=== PATIENT | male | born 1985 | race Caucasian/White ===

== ENCOUNTER → 2018-03-12 | Outpatient (CLI) | payer OTHER ==
--- NOTE | 2018-03-13 08:45 | CT ---
EXAMINATION TYPE: CT iac wo con DATE OF EXAM: 03/12/2018 COMPARISON: NONE HISTORY: Otorrhea to left ear CT DLP: 199mGycm Automated exposure control for dose reduction was used. FINDINGS: There is mucosal thickening within the left maxillary sinus. Right septal spurring is noted . Sphenoid sinuses are clear. Ethmoid air cells are clear. The portion of the frontal sinuses within the [id number] are clear. There are are peripheral scattered fluid-filled right mastoid air cells. More central and inferior ma stoid air cell fluid is on the left. Septal destruction is not identified. Internal auditory canals appear normal and symmetrical. Semicircular canals are unremarkable. There i s a high riding right jugular bulb. Middle ears are clear. Incus and malleus on the right appear norm al. Incus and malleus on the left have small amount of fluid adjacent. Some minimal fluid is within t he middle ear on the left. External auditory canals are clear. IMPRESSION: 1. Correlate for bilateral mastoiditis. 2. Left otitis media may be present. Clinical correlation is recommended.
== END ==
LOC: RADCTMAIN 16:39
PROVIDERS: ATTEND Otolaryngology
DX: H92.12 Otorrhea, left ear (principal)
CPT/HCPCS: 70480

== ENCOUNTER 2018-10-30 03:23 | Emergency (ER) | payer OTHER ==
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
[2018-10-30 03:37] VITALS: RESP 18
[2018-10-30 03:57] LABS: Basophils % (A) 0 %; Eosinophils # (A) 0.1 k/uL (0-0.7); Eosinophils % (A) 1 %; HCT 50.7 % (39.0-53.0); HGB 17.1 gm/dL (13.0-17.5); Lymphocytes # (A) 2.7 k/uL (1.0-4.8); Lymphocytes % (A) 19 %; MCHC 33.8 g/dL (31.0-37.0); MCV 97.7 fL (80.0-100.0); Mean Platelet Volume 6.9; Monocytes # (A) 0.7 k/uL (0-1.0); Monocytes % (A) 5 %; Neutrophils # (A) 10.1 k/uL (1.3-7.7); Neutrophils % (A) 73 %; Platelet Count 475 k/uL (150-450); RBC 5.19 m/uL (4.30-5.90); RDW 12.5 % (11.5-15.5); WBC 13.9 k/uL (3.8-10.6)
[2018-10-30] MEDS ORDERED: LORazepam 2 MG/ML INJ IV STA (04:03)
--- NOTE | 2018-10-30 04:06 | XR ---
EXAMINATION TYPE: XR chest 1V portable DATE OF EXAM: 10/30/2018 COMPARISON: NONE HISTORY: Chest pain TECHNIQUE: Single frontal view of the chest is obtained. FINDINGS: Heart and mediastinum are normal. Lungs are clear. Diaphragm is normal. There is no pleura l effusion or pneumothorax. Bony thorax appears normal. IMPRESSION: Normal chest
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
[2018-10-30 04:07] LABS: ALT 38 U/L (21-72); AST 29 U/L (17-59); Albumin 4.6 g/dL (3.5-5.0); Alkaline Phosphatase 97 U/L (38-126); Anion Gap 18 mmol/L; Blood Urea Nitrogen 6 mg/dL (9-20); Calcium 9.9 mg/dL (8.4-10.2); Carbon Dioxide 20 mmol/L (22-30); Chloride 110 mmol/L (98-107); Glucose 119 mg/dL (74-99); Potassium 3.4 mmol/L (3.5-5.1); Sodium 148 mmol/L (137-145); Total Bilirubin 0.3 mg/dL (0.2-1.3); Total Protein 7.7 g/dL (6.3-8.2)
[2018-10-30 04:26] LABS: Creatine Kinase 89 U/L (55-170)
[2018-10-30 04:29] LABS: INR 0.9 (<1.2); Partial Thromboplastin Time 23.8 sec (22.0-30.0); Prothrombin Time 9.7 sec (9.0-12.0)
[2018-10-30 04:39] LABS: Creatine Kinase MB <0.2 ng/mL (0.0-2.4); Troponin I <0.012 ng/mL (0.000-0.034)
[2018-10-30 04:47] LABS: Alcohol 357 mg/dL
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
[2018-10-30] MEDS ORDERED: SODIUM CHLORIDE 0.9% 1,000 ML IV ONE (06:20)
[2018-10-30 07:43] LABS: Appearance,Urine Clear (Clear); Bilirubin,Urine Negative (Negative); Blood,Urine Negative (Negative); Color,Urine Light Yellow; Glucose,Urine (UA) Negative (Negative); Ketones,Urine Negative (Negative); Leukocyte Esterase,Urine Negative (Negative); Nitrite,Urine Negative (Negative); PH, Urine 5.5 (5.0-8.0); Protein,Urine Negative (Negative); Urobilinogen,Urine <2.0 mg/dL (<2.0)
[2018-10-30 07:54] LABS: Amphetamine Screen,Urine Not Detected (NotDetected); Barbiturate Screen,Urine Not Detected (NotDetected); Benzodiazepines Screen,Urine Not Detected (NotDetected); Cocaine Screen,Urine Not Detected (NotDetected); Methadone Screen, Urine Not Detected (NotDetected); Opiate Screen,Urine Not Detected (NotDetected); Oxycodone Screen, Urine Not Detected (NotDetected); Phencyclidine Screen,Urine Not Detected (NotDetected); Tricyclic Antidepressant,Urine Not Detected (NotDetected); Urn Cannabinoid Scrn Detected (NotDetected)
[2018-10-30 08:10] VITALS: BP 117/76; PULSE 74; TEMP 97.9
== END 2018-10-30 08:09 | disposition home or self-care (01) ==
LOC: EC 03:23
DX: S10.93XA Contusion of unspecified part of neck, initial encounter (principal); S00.83XA Contusion of other part of head, initial encounter; R04.0 Epistaxis; F10.129 Alcohol abuse with intoxication, unspecified; F17.200 Nicotine dependence, unspecified, uncomplicated; Z79.899 Other long term (current) drug therapy; V89.2XXA Person injured in unspecified motor-vehicle accident, traffic, initial encounter; Y92.410 Unspecified street and highway as the place of occurrence of the external cause
CPT/HCPCS: 36415; 93005; 80053; 82550; 82553; 84484; 85025; 85610; 85730; 81003; 80306; 80320; 72170; 71045; 72125; 70450; 70498; 99284; 96374; 96361; J2060; Q9967

== ENCOUNTER 2018-11-17 14:24 | Emergency (ER) | payer OTHER ==
[2018-11-17 14:36] VITALS: TEMP 97.9
[2018-11-17] MEDS ORDERED: ONDANSETRON 4 MG/2 ML VIAL IVP STA (14:50)
[2018-11-17] MEDS ORDERED: SODIUM CHLORIDE 0.9% 2,000 ML IV STA (14:50)
[2018-11-17] MEDS ORDERED: KETOROLAC 30 MG/ML 1 ML VIAL IVP STA (15:34)
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
[2018-11-17 15:37] LABS: Basophils # (A) 0.1 k/uL (0-0.2); Basophils % (A) 1 %; Eosinophils # (A) 0.1 k/uL (0-0.7); Eosinophils % (A) 1 %; HGB 17.5 gm/dL (13.0-17.5); Lymphocytes # (A) 1.7 k/uL (1.0-4.8); Lymphocytes % (A) 16 %; MCH 33.2 pg (25.0-35.0); MCHC 34.4 g/dL (31.0-37.0); MCV 96.7 fL (80.0-100.0); Mean Platelet Volume 6.8; Monocytes # (A) 0.6 k/uL (0-1.0); Monocytes % (A) 6 %; Neutrophils # (A) 8.3 k/uL (1.3-7.7); Neutrophils % (A) 76 %; Platelet Count 516 k/uL (150-450); RBC 5.27 m/uL (4.30-5.90); RDW 12.5 % (11.5-15.5); WBC 10.9 k/uL (3.8-10.6)
[2018-11-17 15:53] LABS: ALT 43 U/L (21-72); AST 20 U/L (17-59); Albumin 4.8 g/dL (3.5-5.0); Alkaline Phosphatase 128 U/L (38-126); Amylase 52 U/L (30-110); Anion Gap 11 mmol/L; Blood Urea Nitrogen 15 mg/dL (9-20); Calcium 10.2 mg/dL (8.4-10.2); Carbon Dioxide 24 mmol/L (22-30); Chloride 104 mmol/L (98-107); Glucose 110 mg/dL (74-99); Lipase 100 U/L (23-300); Sodium 139 mmol/L (137-145); Total Bilirubin 0.8 mg/dL (0.2-1.3); Total Protein 8.3 g/dL (6.3-8.2)
--- NOTE | 2018-11-17 16:40 | CT ---
EXAMINATION TYPE: CT abdomen pelvis w con DATE OF EXAM: 11/17/2018 COMPARISON: None HISTORY: lower abdomen pain CT DLP: 543.7 mGycm Automated exposure control for dose reduction was used. TECHNIQUE: Helical acquisition of images was performed from the lung bases through the pelvis. CONTRAST: Performed without Oral Contrast and with IV Contrast, patient injected with 100 mL of Isovue 300. FINDINGS: Lung bases are clear. There is no pleural effusion. Heart size is normal. There is no pericardial eff usion. Liver spleen pancreas gallbladder appear normal. Bile ducts are not dilated. There is no adrenal mass . Kidneys show satisfactory contrast opacification. There is no hydronephrosis. There is no retroperi toneal adenopathy. Bladder distends smoothly. There is no free fluid in the pelvis. There is no ingui nal hernia. There is no mesenteric edema. There is no sign of free air. There is no ascites. Appendix is not defi nitely seen. There is no sign of appendicitis. There is L5 spondylolysis without spondylolisthesis. IMPRESSION: NO SIGN OF ACUTE ABDOMEN AND PELVIS. L5 SPONDYLOLYSIS. APPENDIX NOT SEEN. NO SIGN OF APPENDICITIS.
[2018-11-17 18:37] VITALS: BP 108/73; PULSE 66; RESP 18
== END 2018-11-17 18:30 | disposition home or self-care (01) ==
LOC: EC 14:24
DX: R10.9 Unspecified abdominal pain (principal); R19.7 Diarrhea, unspecified; F11.10 Opioid abuse, uncomplicated; F32.9 Major depressive disorder, single episode, unspecified; F17.200 Nicotine dependence, unspecified, uncomplicated; Z79.899 Other long term (current) drug therapy
CPT/HCPCS: 36415; 80053; 82150; 83605; 83690; 85025; 74177; 99284; 96374; 96375; 96361 ×3; J2405; J1885; Q9967

== ENCOUNTER → 2023-03-20 | Outpatient (CLI) | payer OTHER ==
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
== END | disposition home or self-care (01) ==
LOC: RADMRIMAIN 19:00
PROVIDERS: ATTEND Pediatrics
DX: S32.050A Wedge compression fracture of fifth lumbar vertebra, initial encounter for closed fracture (principal); X58.XXXA Exposure to other specified factors, initial encounter
CPT/HCPCS: 72148